=== PATIENT | male | born 1975 | race Caucasian/White ===

== ENCOUNTER 2022-09-11 10:11 | Inpatient (IN) | payer MEDICARE, OTHER ==
[~2022-09-11] VITALS: Ht 170.2 cm; Wt 95.7 kg
--- NOTE | 2022-09-11 10:20 | NUR ---
BIBPA FOR COUGH WITH CONGESTION X 2d. A/O X 3, ABLE TO MAKE NEEDS KNOWN, TOLERATING WELL ON ROOM AIR.
[2022-09-11 10:54] LABS: BASOPHILS % (AUTO) 0.4 % (0.0-2.0); HEMATOCRIT 34 % (39-51); HEMOGLOBIN 11.1 g/dL (13.5-17.5); LYMPHOCYTES # (AUTO) 1.8 K/uL (0.8-4.8); LYMPHOCYTES % (AUTO) 20.1 % (20.0-44.0); MEAN CORPUSCULAR HGB CONC 33 g/dl (31.0-36.0); MEAN CORPUSCULAR VOLUME 89 fL (80-96); MONOCYTES # (AUTO) 1.1 K/uL (0.1-1.30); MONOCYTES % (AUTO) 12.7 % (2.0-12.0); NEUTROPHILS # (AUTO) 5.5 K/uL (1.8-8.9); NEUTROPHILS % (AUTO) 62.8 % (43.0-81.0); PLATELET COUNT (AUTO) 284 K/uL (150-450); RED BLOOD CELL COUNT(AUTO) 3.83 MIL/uL (4.5-6.0); WHITE BLOOD COUNT (AUTO) 8.8 K/uL (4.3-11.0)
[2022-09-11 11:05] LABS: CALCIUM, SERUM 9.2 mg/dL (8.5-10.1); CREATININE 0.7 mg/dL (0.6-1.3); POTASSIUM 4.1 mmol/L (3.5-5.1)
--- NOTE | 2022-09-11 11:06 | NUR ---
SWAB FOR COVID19 SENT TO LAB
[2022-09-11] MEDS ORDERED: ZOLPIDEM TARTRATE 5 MG TABLET PO PRN (12:00)
[2022-09-11] MEDS ORDERED: ONDANSETRON HCL/PF 4 MG/2 ML VIAL IVP PRN (12:00)
[2022-09-11] MEDS ORDERED: MAG HYDROX/AL HYDROX/SIMETH 30 ML UDC PO PRN (12:00)
[2022-09-11] MEDS ORDERED: Z GUARD REMEDY 4 OZ OINT TP PRN (12:00)
[2022-09-11] MEDS ORDERED: MAGNESIUM HYDROXIDE 30 ML UDC PO PRN (12:00)
[2022-09-11] MEDS ORDERED: ACETAMINOPHEN 325 MG TABLET PO PRN (12:00)
--- NOTE | 2022-09-11 12:41 | NUR ---
GOT BED 322-1 ADMITTING INFORMED.
--- NOTE | 2022-09-11 13:27 | NUR ---
REPORT GIVEN TO NINOSKA RN ROOM 322 FOR [place]
--- NOTE | 2022-09-11 14:05 | NUR ---
RN NOTE PATIENT TRANSFERRED VIA GURNEY FROM ER, WITH NO SIGNED OF DISTRESS. REPORT RECEIVED FROM ER NURSE. ORIENTED PATIENT TO ROOM SET UP AND EDUCATED ON THE USE OF CALL LIGHT. V/S TAKEN, STABLE AND RECORDED. SKIN ASSESSMENT DONE, SKIN INTACT. ALL BELONGING CHECKED AND BELONGING LIST SIGNED. PATIENT REFUSED TO WEAR HOSPITAL GOWN, PATIENT A/O X 3, VERBALLY ABUSIVE, UNCOOPERATIVE. NO S/S OF PAIN NOTED AT THIS TIME. ON ROOM AIR, BREATHING EVEN UNLABORED, NO DISTRESS OR SHORTNESS OF BREATH NOTED. IV ACCESS L HAND #20G, INTACT PATENT AND FLUSHING WELL. FALL AND SAFETY MEASURES IN PLACE, BED ALARM ON, BED IN LOW AND LOCK POSITION, CALL LIGHT AND TABLE WITHIN EASY REACH, SIDE RAIL UP X2. WILL CONTINUE TO MONITOR.
[2022-09-11 15:55] VITALS: BP 127/69
[2022-09-11 16:00] VITALS: BP 127/69
[2022-09-11] MEDS: IV NS 0.9% 1,000 ML IV PRN (16:16)
[2022-09-11] MEDS: BENZONATATE 100 MG CAPSULE PO PRN (18:17)
[2022-09-11] MEDS ORDERED: CLON0.5T PO (19:05)
[2022-09-11] MEDS ORDERED: ONDA-97 PO (19:05)
[2022-09-11] MEDS ORDERED: ACET-868 PO (19:05)
[2022-09-11] MEDS ORDERED: GEMF600T90 PO (19:05)
[2022-09-11] MEDS ORDERED: OLAN10TA3 PO (19:05)
[2022-09-11] MEDS ORDERED: PROP10TA10 PO (19:05)
[2022-09-11] MEDS ORDERED: FLUV50TA3 PO (19:05)
[2022-09-11] MEDS ORDERED: OLAN7.5T3 PO (19:05)
--- NOTE | 2022-09-11 19:30 | NUR ---
MS RN CLOSING NOTE PATIENT AWAKE IN BED A/O X2. ON ROOM AIR, NO S/S OF DISTRESS AND NO SOB NOTED. ABLE TO MAKE NEEDS KNOWN. PATIENT HAS IV AT LEFT HAND WITH NS AT 75ML/HOUR, INFUSING WELL. PRN MEDICATIONS FOR COUGH ADMINISTERED. ALL NEEDS ATTENDED AND ANTICIPATED. FALL AND SAFETY PRECAUTION IN PLACE: BED LOCKED AND AT THE LOWEST POSITION, SIDE RAILS UP X2, CALL LIGHT WITHIN REACH. WILL ENDORSE TO ELECTRIC MOTORMAN NURSE.
--- NOTE | 2022-09-11 19:30 | NUR ---
MS RN OPENING NOTE RECEIVED PATIENT IN BED, RESTING. AFEBRILE AND NOT IN ANY FORM OF ACUTE DISTRESS. BREATHING EVEN AND NON LABORED. NO C/O PAIN OR DISCOMFORT AT THIS TIME. WITH IV ACCESS ON L HAND 20G RUNNING WITH NS AT 75ML/HR. SAFETY MEASURES IN PLACE. KEPT BED IN LOCKED AND IN LOW POSITION. SIDE RAILS UP X2. ADVISED TO USE THE CALL LIGHT WHEN IN NEED OF ASSISTANCE.
[2022-09-11 20:00] VITALS: BP 145/87
[2022-09-12] MEDS: IV NS 0.9% 1,000 ML IV PRN ×2 (03:29→20:08)
[2022-09-12 06:22] LABS: BASOPHILS % (AUTO) 0.2 % (0.0-2.0); EOSINOPHILS % (AUTO) 2.8 % (0.0-6.0); HEMATOCRIT 32 % (39-51); HEMOGLOBIN 10.6 g/dL (13.5-17.5); LYMPHOCYTES # (AUTO) 1.5 K/uL (0.8-4.8); LYMPHOCYTES % (AUTO) 16.8 % (20.0-44.0); MEAN CORPUSCULAR HGB CONC 33 g/dl (31.0-36.0); MEAN CORPUSCULAR VOLUME 87 fL (80-96); MONOCYTES # (AUTO) 1.1 K/uL (0.1-1.30); MONOCYTES % (AUTO) 11.7 % (2.0-12.0); NEUTROPHILS # (AUTO) 6.2 K/uL (1.8-8.9); NEUTROPHILS % (AUTO) 68.5 % (43.0-81.0); PLATELET COUNT (AUTO) 253 K/uL (150-450); WHITE BLOOD COUNT (AUTO) 9.1 K/uL (4.3-11.0)
--- NOTE | 2022-09-12 06:29 | NUR ---
MS RN CLOSING NOTE PATIENT IN BED, ASLEEP, BUT EASY TO AROUSE AND RESPONSIVE. AFEBRILE AND NOT IN ANY FORM OF ACUTE DISTRESS. BREATHING EVEN AND NON LABORED. NO C/O PAIN OR DISCOMFORT THROUGHOUT THE SHIFT. WITH IV ACCESS ON L HAND 20G RUNNING WITH NS AT 75ML/HR. MEDICATED ORDERED. SAFETY MEASURES IN PLACE. KEPT BED IN LOCKED AND IN LOW POSITION. SIDE RAILS UP X2. ADVISED TO USE THE CALL LIGHT WHEN IN NEED OF ASSISTANCE. ALL NURSING NEEDS ATTENDED. ENDORSED TO INCOMING SHIFT FOR CONTINUITY OF CARE.
[2022-09-12 06:58] LABS: CALCIUM, SERUM 8.7 mg/dL (8.5-10.1); CREATININE 0.6 mg/dL (0.6-1.3); MAGNESIUM 1.8 mg/dL (1.8-2.4); PHOSPHORUS 3.6 mg/dL (2.5-4.9); POTASSIUM 3.8 mmol/L (3.5-5.1)
--- NOTE | 2022-09-12 07:58 | NUR ---
MS RN CLOSING NOTE PATIENT IN BED, ASLEEP, BUT EASY TO AROUSE AND RESPONSIVE. AFEBRILE AND NOT IN ANY FORM OF ACUTE DISTRESS. BREATHING EVEN AND NON LABORED. NO C/O PAIN OR DISCOMFORT AT THIS TIME. PATIENT HAS IV ACCESS ON L HAND 20G RUNNING WITH NS AT 75ML/HR. SAFETY MEASURES IN PLACE. KEPT BED IN LOCKED AND IN LOW POSITION. SIDE RAILS UP X2. ADVISED TO USE THE CALL LIGHT WHEN IN NEED OF ASSISTANCE. BENITO CONTINUE TO MONITOR AND CARE FOR PATIENT PER HOSPITALIST PROVIDER'S POC. Addendum: 09/12/22 at 0818 by TED MARTIN RN OPENING (Not Closing Note)
[2022-09-12 08:32] VITALS: BP 136/83
[2022-09-12] MEDS ORDERED: GUAI100S11 PO (10:29)
[2022-09-12] MEDS ORDERED: IBUP-1957 PO (10:29)
[2022-09-12 16:18] VITALS: BP 112/62
[2022-09-12 17:00] VITALS: BP 142/84
[2022-09-12] MEDS: clonazePAM 0.5 MG TABLET PO SCH (17:12)
[2022-09-12] MEDS: PROPRANOLOL HCL 10 MG TABLET PO SCH (17:12)
[2022-09-12] MEDS: GEMFIBROZIL 600 MG TABLET PO SCH (17:12)
--- NOTE | 2022-09-12 18:58 | NUR ---
MS RN CLOSING NOTE (DAY SHIFT) PATIENT IS AWAKE IN BED A/O X 2. ON ROOM AIR, NO S/S OF DISTRESS AND NO SOB NOTED. ABLE TO MAKE NEEDS KNOWN. PATIENT HAS IV AT LEFT HAND WITH NS AT 75ML/HOUR, INFUSING WELL. ALL SCHEDULED MEDICATIONS ADMINISTERED. ALL NEEDS ATTENDED AND ANTICIPATED. FALL AND SAFETY PRECAUTION IN PLACE: BED LOCKED AND AT THE LOWEST POSITION, SIDE RAILS UP X2, CALL LIGHT WITHIN REACH. WILL ENDORSE TO [employer]AREHOUSE SHIPPING ASSOCIATE NURSE.
--- NOTE | 2022-09-12 19:30 | NUR ---
MS RN OPENING NOTE RECEIVED PATIENT SITTING IN BED, AWAKE,ALERT AND ORIENTED WITH CONFUSION. AFEBRILE AND NOT IN ANY FORM OF ACUTE DISTRESS. BREATHING EVEN AND NON LABORED. NO C/O PAIN OR DISCOMFORT AT THIS TIME. WITH IV ACCESS ON L HAND 20G RUNNING WITH NS AT 75ML/HR. SAFETY MEASURES IN PLACE. KEPT BED IN LOCKED AND IN LOW POSITION. SIDE RAILS UP X2. ADVISED TO USE THE CALL LIGHT WHEN IN NEED OF ASSISTANCE.
[2022-09-12] MEDS: OLANZAPINE 10 MG TABLET PO SCH (21:43)
--- NOTE | 2022-09-12 22:50 | NUR ---
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 NOTIFIED DR. GUTIERREZ AND ORDERED FOR MUPIROCIN OINTMENT Q12HR. ORDER NOTED AND CARRIED OUT.
--- NOTE | 2022-09-13 06:30 | NUR ---
MS RN CLOSING NOTE PATIENT IN BED, ASLEEP, BUT EASY TO AROUSE AND RESPONSIVE. AFEBRILE AND NOT IN ANY FORM OF ACUTE DISTRESS. BREATHING EVEN AND NON LABORED. NO C/O PAIN OR DISCOMFORT THROUGHOUT THE SHIFT. WITH IV ACCESS ON L HAND 20G RUNNING WITH NS AT 75ML/HR. DUE MEDS GIVEN. SAFETY MEASURES IN PLACE. KEPT BED IN LOCKED AND IN LOW POSITION. SIDE RAILS UP X2. ADVISED TO USE THE CALL LIGHT WHEN IN NEED OF ASSISTANCE. ALL NURSING NEEDS ATTENDED. ENDORSED TO INCOMING SHIFT FOR CONTINUITY OF CARE.
--- NOTE | 2022-09-13 07:27 | NUR ---
MS RN OPENING NOTE (DAY SHIFT) PATIENT IN BED, AWAKE, ALERT AND RESPONSIVE. AFEBRILE AND NOT IN ANY FORM OF ACUTE DISTRESS. BREATHING EVEN AND NON LABORED. NO C/O PAIN OR DISCOMFORT AT THIS TIME. PATIENT HAS IV ACCESS ON L HAND 20G INFUSING WITH NS AT 75ML/HR. SAFETY MEASURES IN PLACE. KEPT BED IN LOCKED AND IN LOW POSITION. SIDE RAILS UP X 2. ADVISED TO USE THE CALL LIGHT WHEN IN NEED OF ASSISTANCE. WILL CONTINUE TO MONITOR AND CARE FOR PATIENT PER HOSPITALIST PROVIDER'S POC.
[2022-09-13 08:00] VITALS: BP 122/75
[2022-09-13] MEDS: MUPIROCIN OINT 2% 22 GM TUBE NS SCH ×2 (09:52→22:20)
[2022-09-13] MEDS: PROPRANOLOL HCL 10 MG TABLET PO SCH ×2 (09:53→16:58)
[2022-09-13] MEDS: GEMFIBROZIL 600 MG TABLET PO SCH ×2 (09:54→16:58)
[2022-09-13] MEDS: clonazePAM 0.5 MG TABLET PO SCH ×2 (09:54→16:58)
[2022-09-13] MEDS: FLUVOXAMINE MALEATE 50 MG TABLET PO SCH (09:54)
[2022-09-13] MEDS: OLANZAPINE 2.5 MG TABLET PO SCH (09:55)
[2022-09-13] MEDS: IV NS 0.9% 1,000 ML IV PRN (11:18)
[2022-09-13] MEDS: BENZONATATE 100 MG CAPSULE PO PRN (13:24)
[2022-09-13 16:00] VITALS: BP 133/79
--- NOTE | 2022-09-13 19:10 | NUR ---
MS RN CLOSING NOTE (DAY SHIFT) PATIENT IS AWAKE IN BED A/O X 2. ON ROOM AIR, NO S/S OF DISTRESS AND NO SOB NOTED. ABLE TO MAKE NEEDS KNOWN. PATIENT HAS IV AT LEFT HAND WITH NS AT 75ML/HOUR, INFUSING WELL. ALL SCHEDULED MEDICATIONS ADMINISTERED. ALL NEEDS ATTENDED AND ANTICIPATED. FALL AND SAFETY PRECAUTION IN PLACE: BED LOCKED AND AT THE LOWEST POSITION, SIDE RAILS UP X2, CALL LIGHT WITHIN REACH. WILL ENDORSE TO ACCOUNTANT SYSTEMS NURSE.
--- NOTE | 2022-09-13 19:36 | NUR ---
MS DEMARCUS INITIAL NOTES Received report from am nurse and seen patient in bed resting with eyes closed ,but arouse easily , respiration even and non-labored not in any acute distress noted. Denies any pain or any discomfort at this time. Re-oriented where he at and how to used the call light system . IVF NS at 75ml/hr infusing at this time. Kept him warm and comfortable at all times. Bed in low and lock in position with side rails x2 up and bed alarm set for pt. safety. will continue monitoring.
[2022-09-13 20:00] VITALS: BP_SYST 148; BP_SYST 159; BP_DIAS 74; BP_DIAS 79
[2022-09-13] MEDS ORDERED: MIRTAZAPINE 15 MG TABLET PO SCH (22:00)
[2022-09-13] MEDS: OLANZAPINE 10 MG TABLET PO SCH (22:20)
--- NOTE | 2022-09-14 | NUR ---
MS DEMARCUS NOTES Seen patient get up and walked going to the bathroom , I asked him if he needs some assistance he just states' I'm good " . IVF NS at 75ml/hr infusing at this time. He's back to his bed without any discomfort or any acute distress noted. will continue monitoring .
[2022-09-14] MEDS: IV NS 0.9% 1,000 ML IV PRN (02:27)
--- NOTE | 2022-09-14 05:49 | NUR ---
MS ENVIRONMENTAL TECH NOTES PT remains resting at this time, no signs of any acute distress noted. IVF still infusing without any infiltraion noted. will continue monitor. place call light at reach. Bed in low and lock in position with side x2 up .
--- NOTE | 2022-09-14 07:35 | NUR ---
MS CLINIC MANAGER CLOSING NOTES PT STILL SLEEPING BUT NO SIGNS OF ANY DISTRESS NOTED. STABLE THROUGHOUT THE NIGHT . ALL DUE MEDS GIVEN AND ALL NEEDS MET. REFUSED TO HELP HIM FOR NIGHT CARE AND MORNING CARE. HE STATES "HE'S OK " IVF NS AT 75ML/HR STILL INFUSING . KEPT HIM WARM AND COMFORTABLE AT ALL TIMES. BED IN LOW AND LOCK IN POSITION WITH SIDE RAILS X2 UP . PLACE CALL LIGHT AT REACH.
--- NOTE | 2022-09-14 07:57 | NUR ---
MS RN OPENING NOTES: RECEIVED PT ASLEEP, EASILY ROUSED. A/O X2-3 WITH PERIODS OF CONFUSION. ABLE TO MAKE NEEDS KNOWN, DENIES PAIN AT THIS TIME. ON RA WITH NO S/S OF SOB OR ACUTE DISTRESS. IV ACCESS AT L HAND #20 RUNNING NS @ 75ML/HR. PT IS AMBULATORY. ALL SAFETY MEASURES IN PLACE, CALL LIGHT AND TABLE WITHIN EASY REACH, WILL CONT WITH PLAN OF CARE DURING SHIFT.
[2022-09-14] MEDS: GEMFIBROZIL 600 MG TABLET PO SCH ×2 (08:15→17:00)
[2022-09-14] MEDS: OLANZAPINE 2.5 MG TABLET PO SCH (08:15)
[2022-09-14] MEDS: FLUVOXAMINE MALEATE 50 MG TABLET PO SCH (08:15)
[2022-09-14] MEDS: clonazePAM 0.5 MG TABLET PO SCH ×2 (08:16→17:00)
[2022-09-14] MEDS: MUPIROCIN OINT 2% 22 GM TUBE NS SCH (08:20)
[2022-09-14] MEDS ORDERED: OLANZAPINE 2.5 MG TABLET PO ONE (09:00)
[2022-09-14] MEDS: PROPRANOLOL HCL 10 MG TABLET PO SCH ×2 (09:00→17:00)
[2022-09-14] MEDS ORDERED: OLANZAPINE 2.5 MG TABLET PO SCH (09:00)
--- NOTE | 2022-09-14 09:00 | NUR ---
RN NOTES: Patient refused vitals to be taken. RN explained importance of vitals before giving BP meds. Patient still refused and became verbally abusive. RN will attempt to take vital signs again.
[2022-09-14] MEDS ORDERED: Olanzapine PO (12:23)
--- NOTE | 2022-09-14 17:00 | NUR ---
MS RN DC NOTES: PATIENT STABLE FOR D/C. VITALS WNL. ON ROOM AIR WITH NO S/S OF SOB. DISCUSSED DC INSTRUCTIONS, BELONGINGS CHECKLIST, AND MEDICATIONS, PATIENT SIGNED DOCUMENTS. MEDICAL RECORDS GIVEN TO PATIENT AND EMT. ID BAND AND IV ACCESS REMOVED. PATIENT LEFT UNIT VIA GURNEY, TRANSPORTATION IS [facility].
[2022-09-15] MEDS ORDERED: OLANZAPINE 2.5 MG TABLET PO SCH (09:00)
== END 2022-09-14 17:00 | DRG 640 ==
LOC: ER 10:16 → MED 13:20
PROVIDERS: ADMIT Nurse Practitioner Acute Care; ATTEND Nurse Practitioner Acute Care
DX: R62.7 Adult failure to thrive (principal); G93.41 Metabolic encephalopathy; F33.3 Major depressive disorder, recurrent, severe with psychotic symptoms; I10 Essential (primary) hypertension; E78.5 Hyperlipidemia, unspecified; Z79.899 Other long term (current) drug therapy; R05.9 Cough, unspecified; R53.1 Weakness; Z22.322 Carrier or suspected carrier of Methicillin resistant Staphylococcus aureus
CPT/HCPCS: 36415; 71045-TC; 80048-TC; 83735-TC; 84100-TC; 85025-TC; 87081-TC; 92526; 92611-TC; 97112-TC; 97116-TC; 97530-TC; A4223; C9803; G0378; J7030